=== PATIENT | male | born 1960 | race Caucasian/White ===

== ENCOUNTER 2016-09-24 08:25 | Emergency (ER) | payer OTHER ==
[2016-09-24 09:37] LABS: EOSINOPHILS 3.5 % (0-7); HEMATOCRIT 43.1 % (42.0-54.0); HEMOGLOBIN 14.8 g/dL (13.5-17.5); IMMATURE GRANULOCYTES 0.7 % (0-5); LYMPHOCYTES 12.2 % (15-50); MCH 28.9 pg (26.0-34.0); MCHC 34.3 g/dL (31.0-37.0); MCV 84.2 fL (80.0-100.0); MEAN PLATELET VOLUME 8.5 fL (7.4-10.4); MONOCYTES 13.5 % (2-11); NEUTROPHILS 69.1 % (40-80); RBC 5.12 10x6/uL (4.20-6.10); RDW 13.3 % (11.5-14.5); WBC 11.4 10x3/uL (4.8-10.8)
[2016-09-24 09:41] LABS: PLATELET COUNT 548 10x3/uL (130-400)
[2016-09-24 09:49] LABS: INR 0.98 (0.85-1.17); PROTIME 12.8 SECONDS (11.6-15.0)
[2016-09-24 09:50] LABS: D-DIMER-QUANTITATIVE 1.75 ug/mLFEU (0.20-0.54)
[2016-09-24 09:55] LABS: ALKALINE PHOSPHATASE 62 U/L (46-116); ALT (SGPT) 19 U/L (10-68); CALC OSMOLALITY 263 mosm/kg (275-300); CALCIUM 9.3 mg/dL (8.5-10.1); CARBON DIOXIDE 26.8 mmol/L (21.0-32.0); CHLORIDE - SERUM 95 mmol/L (98-107); CREATININE - SERUM 0.7 mg/dL (0.6-1.3); GLUCOSE 123 mg/dL (74-106); POTASSIUM - SERUM 3.7 mmol/L (3.5-5.1); PROTEIN - SERUM 8.2 g/dL (6.4-8.2); SODIUM 132 mmol/L (136-145); UREA NITROGEN 8 mg/dL (7-18); eGFR NON AFRICAN AMERICAN > 90 mL/min (90-120)
[2016-09-24 09:57] LABS: CREATINE KINASE 53 UL (21-232); TROPONIN-I < 0.017 ng/mL (0.000-0.060)
== END 2016-09-24 15:32 | disposition home or self-care (01) ==
LOC: D.ER 08:25
PROVIDERS: Emergency Medicine
DX: J93.9 Pneumothorax, unspecified (principal); I10 Essential (primary) hypertension; I25.10 Atherosclerotic heart disease of native coronary artery without angina pectoris

== ENCOUNTER 2017-11-16 15:35 | Emergency (ER) | payer OTHER ==
[2017-11-16 16:30] LABS: HEMATOCRIT 29.2 % (42.0-54.0); MCH 27.5 pg (26.0-34.0); MCHC 34.2 g/dL (31.0-37.0); MCV 80.2 fL (80.0-100.0); MEAN PLATELET VOLUME 8.9 fL (7.4-10.4); PLATELET COUNT 626 10x3/uL (130-400); RBC 3.64 10x6/uL (4.20-6.10); RDW 16.2 % (11.5-14.5); WBC 28.1 10x3/uL (4.8-10.8)
[2017-11-16 16:53] LABS: EOSINOPHILS 1 % (0-7); LYMPHOCYTES 7 % (15-50); MONOCYTES 7 % (2-11); NEUTROPHILS 85 % (40-80); PLATELET ESTIMATE INCREASED
[2017-11-16 17:36] LABS: ALBUMIN 2.5 g/dL (3.4-5.0); ALKALINE PHOSPHATASE 128 U/L (46-116); BILIRUBIN - TOTAL 0.36 mg/dL (0.2-1.3); CALC OSMOLALITY 259 mosm/kg (275-300); CALCIUM 8.4 mg/dL (8.5-10.1); CARBON DIOXIDE 22.4 mmol/L (21.0-32.0); CHLORIDE - SERUM 89 mmol/L (98-107); CREATININE - SERUM 1.1 mg/dL (0.6-1.3); GLUCOSE 92 mg/dL (74-106); POTASSIUM - SERUM 4.2 mmol/L (3.5-5.1); PROTEIN - SERUM 7.6 g/dL (6.4-8.2); SODIUM 124 mmol/L (136-145); UREA NITROGEN 40 mg/dL (7-18); eGFR NON AFRICAN AMERICAN 73 mL/min (90-120)
[2017-11-16 17:48] LABS: CKMB 79.2 U/L (0.0-3.6)
[2017-11-16 18:02] LABS: ALT (SGPT) 2778 U/L (10-68); CREATINE KINASE 6568 UL (21-232)
[2017-11-16 18:03] LABS: TROPONIN-I 0.198 ng/mL (0.000-0.060)
[2017-11-16 18:52] LABS: APPEARANCE CLEAR (CLEAR); COLOR YELLOW (YELLOW)
[2017-11-16 18:53] LABS: BILIRUBIN NEGATIVE (NEGATIVE); GLUCOSE NEGATIVE (NEGATIVE); KETONE NEGATIVE (NEGATIVE); NITRITE NEGATIVE (NEGATIVE); PROTEIN NEGATIVE (NEGATIVE); UROBILINOGEN NORMAL (NORMAL)
== END 2017-11-16 20:56 | disposition short-term general hospital (02) ==
LOC: D.ER 15:35
PROVIDERS: Family Medicine
DX: J18.9 Pneumonia, unspecified organism (principal); F17.200 Nicotine dependence, unspecified, uncomplicated; I10 Essential (primary) hypertension; I45.10 Unspecified right bundle-branch block

== ENCOUNTER 2018-02-15 22:30 | Emergency (ER) | payer OTHER ==
[~2018-02-15] VITALS: Ht 172.7 cm; Wt 61.4 kg
[2018-02-15 22:33] VITALS: Ht 172.7 cm; Wt 61.4 kg
[2018-02-15] MEDS ORDERED: NORVASC10 MG PO (22:35)
[2018-02-15] MEDS ORDERED: PROAIR HFA8.5 GM INH (22:35)
[2018-02-15] MEDS ORDERED: SYMBICORT 80-10.2 GM INH (22:35)
[2018-02-15] MEDS ORDERED: OXYCONTIN15 MG (22:36)
[2018-02-15] MEDS ORDERED: HEALTHYLAX17 GM PO (22:36)
[2018-02-15] MEDS ORDERED: NICODERM C1 PATCH .3 TRANSDERM (22:36)
[2018-02-15 23:00] LABS: BASOPHILS 0 % (0-2); EOSINOPHILS 0.6 % (0-7); HEMOGLOBIN 13.5 g/dL (13.5-17.5); IMMATURE GRANULOCYTES 1.2 % (0-5); LYMPHOCYTES 18.8 % (15-50); MCH 27.8 pg (26.0-34.0); MCHC 37.5 g/dL (31.0-37.0); MCV 74.1 fL (80.0-100.0); MEAN PLATELET VOLUME 7.9 fL (7.4-10.4); MONOCYTES 4.8 % (2-11); NEUTROPHILS 74.6 % (40-80); RBC 4.86 10x6/uL (4.20-6.10); RDW 14.3 % (11.5-14.5); WBC 13.5 10x3/uL (4.8-10.8)
[2018-02-15 23:03] LABS: PLATELET COUNT 292 10x3/uL (130-400)
[2018-02-15 23:29] LABS: ALBUMIN 3.4 g/dL (3.4-5.0); ALKALINE PHOSPHATASE 50 U/L (46-116); ALT (SGPT) 48 U/L (10-68); BILIRUBIN - TOTAL 0.55 mg/dL (0.2-1.3); CALCIUM 8.2 mg/dL (8.5-10.1); CARBON DIOXIDE 29.8 mmol/L (21.0-32.0); CKMB 29.9 U/L (0.0-3.6); CREATINE KINASE 513 UL (21-232); CREATININE - SERUM 0.5 mg/dL (0.6-1.3); GLUCOSE 124 mg/dL (74-106); PRO BNP 340 pg/mL (0-125); PROTEIN - SERUM 7.4 g/dL (6.4-8.2); UREA NITROGEN 7 mg/dL (7-18); eGFR NON AFRICAN AMERICAN > 90 mL/min (90-120)
[2018-02-15 23:30] LABS: CALC OSMOLALITY 207 mosm/kg (275-300); CHLORIDE - SERUM 70 mmol/L (98-107); POTASSIUM - SERUM 2.9 mmol/L (3.5-5.1); SODIUM 102 mmol/L (136-145)
[2018-02-15 23:32] LABS: INR 0.95 (0.85-1.17); PROTIME 12.3 SECONDS (11.6-15.0)
[2018-02-15 23:35] LABS: D-DIMER-QUANTITATIVE 0.32 ug/mLFEU (0.20-0.54)
[2018-02-16 04:33] VITALS: BP 116/65
== END 2018-02-16 04:39 ==
LOC: D.ER 22:30
PROVIDERS: Family Medicine
DX: J44.1 Chronic obstructive pulmonary disease with (acute) exacerbation (principal); E87.6 Hypokalemia; E87.1 Hypo-osmolality and hyponatremia; R06.02 Shortness of breath

== ENCOUNTER 2018-03-06 15:03 | Emergency (ER) | payer OTHER ==
[~2018-03-06] VITALS: Ht 172.7 cm; Wt 58.2 kg
[~2018-03-06 15:03] MED LIST: HEALTHYLAX17 GM PO; NICODERM C1 PATCH .3 TRANSDERM; NORVASC10 MG PO; OXYCONTIN15 MG; PROAIR HFA8.5 GM INH; SYMBICORT 80-10.2 GM INH
[2018-03-06 15:06] VITALS: Ht 172.7 cm; Wt 58.2 kg
[2018-03-06 15:22] LABS: BASOPHILS 0.5 % (0-2); EOSINOPHILS 0.6 % (0-7); HEMATOCRIT 33.2 % (42.0-54.0); HEMOGLOBIN 11.1 g/dL (13.5-17.5); IMMATURE GRANULOCYTES 0.5 % (0-5); LYMPHOCYTES 5.9 % (15-50); MCH 27.1 pg (26.0-34.0); MCHC 33.4 g/dL (31.0-37.0); MCV 81.2 fL (80.0-100.0); MEAN PLATELET VOLUME 8.2 fL (7.4-10.4); MONOCYTES 12.9 % (2-11); NEUTROPHILS 79.6 % (40-80); PLATELET COUNT 310 10x3/uL (130-400); RBC 4.09 10x6/uL (4.20-6.10); RDW 15.5 % (11.5-14.5); WBC 10.9 10x3/uL (4.8-10.8)
[2018-03-06 15:57] LABS: ALBUMIN 2.8 g/dL (3.4-5.0); ALKALINE PHOSPHATASE 53 U/L (46-116); ALT (SGPT) 14 U/L (10-68); BILIRUBIN - TOTAL 0.32 mg/dL (0.2-1.3); CALC OSMOLALITY 258 mosm/kg (275-300); CALCIUM 8.8 mg/dL (8.5-10.1); CARBON DIOXIDE 32.3 mmol/L (21.0-32.0); CHLORIDE - SERUM 93 mmol/L (98-107); CREATININE - SERUM 0.6 mg/dL (0.6-1.3); GLUCOSE 125 mg/dL (74-106); POTASSIUM - SERUM 4.2 mmol/L (3.5-5.1); PROTEIN - SERUM 7.3 g/dL (6.4-8.2); SODIUM 129 mmol/L (136-145); UREA NITROGEN 10 mg/dL (7-18); eGFR NON AFRICAN AMERICAN > 90 mL/min (90-120)
[2018-03-06 16:09] LABS: CKMB 3.2 U/L (0.0-3.6); CREATINE KINASE 40 UL (21-232); PRO BNP 1813 pg/mL (0-125)
[2018-03-06 16:11] LABS: TROPONIN-I < 0.017 ng/mL (0.000-0.060)
[2018-03-06 20:05] VITALS: BP 139/93
== END 2018-03-06 20:00 | disposition other institution (70) ==
LOC: D.ER 15:03
PROVIDERS: Family Medicine
DX: J18.9 Pneumonia, unspecified organism (principal); I10 Essential (primary) hypertension; J44.9 Chronic obstructive pulmonary disease, unspecified; F17.200 Nicotine dependence, unspecified, uncomplicated; R00.0 Tachycardia, unspecified

== ENCOUNTER 2018-05-15 23:36 | Emergency (ER) | payer OTHER ==
[~2018-05-15] VITALS: Ht 172.7 cm; Wt 59.1 kg
[2018-05-15 23:38] VITALS: Ht 172.7 cm; Wt 59.1 kg
[2018-05-15] MEDS ORDERED: AFRIN15 ML (23:43)
[2018-05-16 00:03] LABS: EOSINOPHILS 2.9 % (0-7); HEMATOCRIT 39.9 % (42.0-54.0); HEMOGLOBIN 13.5 g/dL (13.5-17.5); IMMATURE GRANULOCYTES 0.8 % (0-5); MCH 28.1 pg (26.0-34.0); MCHC 33.8 g/dL (31.0-37.0); MCV 83.1 fL (80.0-100.0); MEAN PLATELET VOLUME 8.5 fL (7.4-10.4); MONOCYTES 12.4 % (2-11); NEUTROPHILS 64.9 % (40-80); RDW 15.2 % (11.5-14.5); WBC 10.2 10x3/uL (4.8-10.8)
[2018-05-16 00:04] LABS: PLATELET COUNT 379 10x3/uL (130-400)
[2018-05-16 00:11] LABS: APTT 27.7 SECONDS (22.8-39.4); PROTIME 11.8 SECONDS (11.6-15.0)
[2018-05-16 00:13] LABS: D-DIMER-QUANTITATIVE < 0.27 ug/mLFEU (0.20-0.54)
[2018-05-16 00:17] LABS: ALBUMIN 3.6 g/dL (3.4-5.0); ALKALINE PHOSPHATASE 39 U/L (46-116); ALT (SGPT) 16 U/L (10-68); BILIRUBIN - TOTAL 0.28 mg/dL (0.2-1.3); CALC OSMOLALITY 275 mosm/kg (275-300); CALCIUM 8.9 mg/dL (8.5-10.1); CARBON DIOXIDE 24.2 mmol/L (21.0-32.0); CHLORIDE - SERUM 100 mmol/L (98-107); CREATININE - SERUM 0.8 mg/dL (0.6-1.3); GLUCOSE 115 mg/dL (74-106); POTASSIUM - SERUM 3.9 mmol/L (3.5-5.1); PROTEIN - SERUM 7.7 g/dL (6.4-8.2); SODIUM 136 mmol/L (136-145); UREA NITROGEN 20 mg/dL (7-18); eGFR NON AFRICAN AMERICAN > 90 mL/min (90-120)
[2018-05-16 00:24] LABS: CKMB 2.8 U/L (0.0-3.6); CREATINE KINASE 53 UL (21-232); MAGNESIUM - SERUM 1.8 mg/dL (1.8-2.4)
[2018-05-16 00:29] LABS: TROPONIN-I < 0.017 ng/mL (0.000-0.060)
[2018-05-16 03:55] VITALS: BP 115/73
== END 2018-05-16 03:55 | disposition home or self-care (01) ==
LOC: D.ER 23:36
PROVIDERS: Family Medicine
DX: R07.9 Chest pain, unspecified (principal); J43.8 Other emphysema; R06.02 Shortness of breath; I10 Essential (primary) hypertension; R00.0 Tachycardia, unspecified; I45.10 Unspecified right bundle-branch block

== ENCOUNTER 2018-06-20 06:06 | Emergency (ER) | payer SELFPAY ==
[~2018-06-20] VITALS: Ht 172.7 cm; Wt 72.7 kg
[~2018-06-20 06:06] MED LIST changes: +AFRIN15 ML
[2018-06-20 06:10] VITALS: Ht 172.7 cm; Wt 72.7 kg
[2018-06-20] MEDS ORDERED: BAYER CHEWABLE81 MG PO (06:16)
[2018-06-20] MEDS ORDERED: OMEPRAZOLE20 M1 PO (06:17)
[2018-06-20] MEDS ORDERED: HOME OXYGEN (06:17)
[2018-06-20 06:46] LABS: BASOPHILS 0.6 % (0-2); EOSINOPHILS 1.7 % (0-7); HEMATOCRIT 41.9 % (42.0-54.0); HEMOGLOBIN 14.2 g/dL (13.5-17.5); IMMATURE GRANULOCYTES 0.6 % (0-5); LYMPHOCYTES 20.8 % (15-50); MCH 28.1 pg (26.0-34.0); MCHC 33.9 g/dL (31.0-37.0); MCV 82.8 fL (80.0-100.0); MEAN PLATELET VOLUME 8.8 fL (7.4-10.4); MONOCYTES 12.4 % (2-11); NEUTROPHILS 63.9 % (40-80); RBC 5.06 10x6/uL (4.20-6.10); RDW 15.2 % (11.5-14.5); WBC 10.2 10x3/uL (4.8-10.8)
[2018-06-20 06:48] LABS: PLATELET COUNT 285 10x3/uL (130-400)
[2018-06-20 06:54] LABS: ALBUMIN 3.5 g/dL (3.4-5.0); ALKALINE PHOSPHATASE 30 U/L (46-116); ALT (SGPT) 19 U/L (10-68); BILIRUBIN - TOTAL 0.25 mg/dL (0.2-1.3); CALC OSMOLALITY 270 mosm/kg (275-300); CALCIUM 8.8 mg/dL (8.5-10.1); CARBON DIOXIDE 25.9 mmol/L (21.0-32.0); CHLORIDE - SERUM 100 mmol/L (98-107); CREATININE - SERUM 0.7 mg/dL (0.6-1.3); GLUCOSE 104 mg/dL (74-106); POTASSIUM - SERUM 3.4 mmol/L (3.5-5.1); PROTEIN - SERUM 7.5 g/dL (6.4-8.2); SODIUM 135 mmol/L (136-145); UREA NITROGEN 16 mg/dL (7-18); eGFR NON AFRICAN AMERICAN > 90 mL/min (90-120)
[2018-06-20 07:02] LABS: CREATINE KINASE 66 UL (21-232); PRO BNP 111 pg/mL (0-125)
[2018-06-20 07:05] LABS: TROPONIN-I < 0.017 ng/mL (0.000-0.060)
[2018-06-20] MEDS ORDERED: ULTRAM50 MG PO (07:13)
[2018-06-20 08:08] VITALS: BP 128/88
== END 2018-06-20 08:10 | disposition home or self-care (01) ==
LOC: D.ER 06:06
PROVIDERS: Family Medicine
DX: J44.9 Chronic obstructive pulmonary disease, unspecified (principal); R07.9 Chest pain, unspecified

== ENCOUNTER 2018-12-17 06:18 | Emergency (ER) | payer SELFPAY ==
[~2018-12-17] VITALS: Ht 172.7 cm; Wt 68.2 kg
[~2018-12-17 06:18] MED LIST changes: +BAYER CHEWABLE81 MG PO; +HOME OXYGEN; +OMEPRAZOLE20 M1 PO; +ULTRAM50 MG PO
[2018-12-17 06:37] VITALS: Ht 172.7 cm; Wt 68.2 kg
[2018-12-17 07:00] LABS: BASOPHILS 2.1 % (0-2); EOSINOPHILS 7.5 % (0-7); HEMATOCRIT 45.2 % (42.0-54.0); HEMOGLOBIN 15.3 g/dL (13.5-17.5); IMMATURE GRANULOCYTES 0.6 % (0-5); MCH 28.9 pg (26.0-34.0); MCHC 33.8 g/dL (31.0-37.0); MCV 85.4 fL (80.0-100.0); MEAN PLATELET VOLUME 9.1 fL (7.4-10.4); MONOCYTES 11.2 % (2-11); NEUTROPHILS 40.6 % (40-80); PLATELET COUNT 307 10x3/uL (130-400); RBC 5.29 10x6/uL (4.20-6.10); RDW 14.1 % (11.5-14.5); WBC 5.2 10x3/uL (4.8-10.8)
[2018-12-17 07:11] LABS: ALBUMIN 3.9 g/dL (3.4-5.0); ALKALINE PHOSPHATASE 36 U/L (46-116); ALT (SGPT) 139 U/L (10-68); BILIRUBIN - TOTAL 0.42 mg/dL (0.2-1.3); CALC OSMOLALITY 277 mosm/kg (275-300); CALCIUM 9.4 mg/dL (8.5-10.1); CARBON DIOXIDE 25.9 mmol/L (21.0-32.0); CHLORIDE - SERUM 102 mmol/L (98-107); CREATININE - SERUM 0.8 mg/dL (0.6-1.3); GLUCOSE 106 mg/dL (74-106); POTASSIUM - SERUM 3.5 mmol/L (3.5-5.1); PROTEIN - SERUM 8.2 g/dL (6.4-8.2); SODIUM 140 mmol/L (136-145); UREA NITROGEN 10 mg/dL (7-18); eGFR NON AFRICAN AMERICAN > 90 mL/min (90-120)
[2018-12-17 07:32] LABS: CREATINE KINASE 484 UL (21-232); MAGNESIUM - SERUM 1.6 mg/dL (1.8-2.4); PRO BNP 37 pg/mL (0-125); TROPONIN-I < 0.017 ng/mL (0.000-0.060)
[2018-12-17 08:04] LABS: CKMB 7.8 U/L (0.0-3.6)
[2018-12-17 09:31] LABS: AMYLASE - SERUM 47 U/L (25-115); LIPASE 77 U/L (73-393)
[2018-12-17 09:32] LABS: TROPONIN-I < 0.017 ng/mL (0.000-0.060)
[2018-12-17] MEDS ORDERED: ULTRAM50 MG PO (09:45)
[2018-12-17] MEDS ORDERED: INDOCIN25 MG PO (09:45)
[2018-12-17 10:11] VITALS: BP 130/89
== END 2018-12-17 10:12 | disposition home or self-care (01) ==
LOC: D.ER 06:18
PROVIDERS: Emergency Medicine; Family Medicine
DX: R07.89 Other chest pain (principal)